=== PATIENT | female | born 1945 | race Two or more races ===

== ENCOUNTER → 2016-12-10 | Outpatient (CLI) | payer BC ==
--- NOTE | 2016-12-10 18:25 | PCVCIMAG ---
APPROVED REPORT Study performed: 12/10/2016 14:41:32 EXAM: Comprehensive 2D, Doppler, and color-flow Echocardiogram Status: routine Other Information Study Quality: Good Indications Murmur 2D Dimensions IVSd: 9.47 (7-11mm)LVOT Diam: 16.36 (18-24mm) LVDd: 39.26 mm LVPWs: 25.70 mm PWd: 7.42 (7-11mm)Ascending Ao: 27.68 (22-36mm) LVDs: 23.50 (25-40mm) Left Atrium: 30.79 (27-40mm) Aortic Root: 25.41 mm LV Single Plane 4CH: 56.43 % Volumes Left Atrial Volume (Systole) Single Plane 4CH: 21.93 mLSingle Plane 2CH: 14.51 mL LA ESV Index: 13.00 mL/m2 Aortic Valve AoV Peak Martell.: 1.22 m/s AO Peak Gr.: 5.93 mmHgLVOT Max P.21 mmHg LVOT Max V: 1.14 m/s SHABBIR Vmax: 1.97 cm2 Pulmonary Vein P Vein S: 0.71 m/sP Vein A: 0.37 m/s P Vein D: 0.48 m/sP Vein A Dur.: 65.7 msec P Vein S/D Ratio: 1.48 Tricuspid Valve TR Peak Martell.: 2.17 m/s TR Peak Gr.: 18.84 mmHg Left Ventricle The left ventricle is normal size. There is normal LV segmental wall motion. There is normal left ventricular wall thickness. Left ventricular systolic function is normal. The left ventricular ejection fraction is within the normal range. LVEF is 60%. The left ventricular diastolic function is normal. Right Ventricle The right ventricle is normal size. The right ventricular systolic function is normal. Atria The left atrium size is normal. The right atrium size is normal. Aortic Valve The aortic valve is normal in structure.trivial sclerosis no stenosis No aortic regurgitation is present. There is no aortic valvular stenosis. Mitral Valve The mitral valve is normal in structure. Trace mitral regurgitation. No evidence of mitral valve stenosis. Tricuspid Valve The tricuspid valve is normal in structure. There is no tricuspid valve regurgitation noted. Pulmomonary artery pressure is 25mmhg. Pulmonic Valve The pulmonary valve is normal in structure. There is no pulmonic valvular regurgitation. Great Vessels The aortic root is normal in size. IVC is normal in size and collapses with >50% inspiration Pericardium There is no pericardial effusion. <Conclusion> Left ventricular systolic function is normal. The left ventricular ejection fraction is within the normal range. LVEF is 60%. The left ventricular diastolic function is normal. The right ventricle is normal size. The left atrium size is normal. trace mitral regurgitation. There is no tricuspid valve regurgitation noted. Pulmomonary artery pressure is 25mmhg. There is no pericardial effusion. The aortic valve is normal in structure.trivial sclerosis no stenosis
== END | disposition home or self-care (01) ==
LOC: PCVCIMAG 14:31
PROVIDERS: ATTEND Internal Medicine Cardiovascular Disease
DX: I34.0 Nonrheumatic mitral (valve) insufficiency (principal); I10 Essential (primary) hypertension; E78.00 Pure hypercholesterolemia, unspecified; Z79.82 Long term (current) use of aspirin
CPT/HCPCS: 80061; 93005; 93306; G0463